=== PATIENT | female | born 1945 | race African-American/Black ===

== ENCOUNTER → 2016-05-08 | Outpatient (CLI) | payer OTHER, MEDICARE ==
--- NOTE | 2016-05-08 10:51 | DX ---
Bilateral knee series 3 views each 0 941 hours. History: Follow-up bilateral knee replacement. Knee pain. Findings: Comparison to left knee series from November 09, 2015 and right knee series from May 18, 2014. Left knee: The left total knee replacement remains in good position and alignment. There is no eviden ce of lucency around the components. No fractures are seen. A small effusion is suspected in the supr apatellar bursa. There is a stable calcification in the anterior knee joint just below the inferior m argin of the patella similar to the prior study. On the merchant view obtained there is no subluxatio n of the patella. Right knee: The right total knee replacement remains in good position and alignment. There is no evid ence of lucency around the components. No fractures are seen. There is no evidence of effusion in the suprapatellar bursa. On the merchant view obtained there is no subluxation of the patella. Impression: 1. Stable position and alignment of bilateral total knee replacements. 2. Small effusion suspected left suprapatellar bursa.
--- NOTE | 2016-05-08 11:01 | DX ---
Bilateral hip series with weightbearing views 0 948 hours. History: Previous hip arthroplasty. Hip pain. Findings: Comparison to December 03, 2014. 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 Calcifications previou sly seen adjacent to the lesser trochanter have a different configuration on today's study. The heter otopic bone previously visualized along the anterior medial margin of the proximal femoral shaft has become more confluent and may have fused with the adjacent bone. There is no evidence of lucency arou nd the hip replacement to suggest loosening. No fractures are seen or abnormal lytic or sclerotic oss eous lesions. Left hip: The left hip joint space is relatively well maintained. There is a stable subchondral cyst along the superolateral margin of the acetabulum. There are no new fractures or abnormal lytic or scl erotic osseous lesions. Soft tissues are unremarkable. Impression: 1. No change in appearance of the left hip with stable subchondral cyst superolateral acetabular gen in. 2. Right total hip replacement in stable position and alignment. 3. 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 4. 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
== END ==
LOC: BMCIMAGING 09:39
PROVIDERS: ATTEND Orthopaedic Surgery
DX: M25.561 Pain in right knee (principal); M25.551 Pain in right hip; M89.9 Disorder of bone, unspecified; R93.8 Abnormal findings on diagnostic imaging of other specified body structures; Z96.651 Presence of right artificial knee joint; Z96.642 Presence of left artificial hip joint; Z96.652 Presence of left artificial knee joint

== ENCOUNTER → 2017-06-11 | Outpatient (CLI) | payer OTHER, MEDICARE | LOC: BMCIMAGING 11:03 | PROVIDERS: ATTEND Orthopaedic Surgery | DX: M25.552 Pain in left hip (principal) ==